=== PATIENT | female | born 2000 | race Hispanic/Latino ===

== ENCOUNTER 2023-08-28 17:45 | Emergency (ER) | payer SELFPAY ==
[2023-08-28 17:52] VITALS: BP 125/86; PULSE 110; RESP 18; TEMP 36.8; O2SAT 98
[2023-08-28 19:28] VITALS: BP 136/89; PULSE 94; RESP 14; O2SAT 100
--- NOTE | 2023-08-28 19:40 | ED.FEMALEGU ---
HPI - Female Genitourinary General Chief complaint: [employer] Stated complaint: vaginal pain Time Seen by Provider: 08/28/23 19:18 History of Present Illness HPI Narrative: 22-year-old [place]-speaking female presents to the emergency department with concerns for a abscess to her labia for a few days. Patient states the area has been draining some fluid. She also reports a thickened white discharge. She has had 1 sexual partner in the past 6 months and is requesting to be tested for STDs with empiric treatment. She denies fever, abdominal pain, nausea or vomiting, vaginal bleeding. LMP 08/10/2023. History taking and exam performed with titrator. Related Data Allergies Allergy/AdvReac Type Severity Reaction Status Date / Time No Known Allergies Allergy Verified 08/28/23 19:32 Review of Systems Review of Systems: CONSTITUTIONAL: Denies fever, chills, or sweats. EYES: Denies visual changes, redness, or discharge. ENT: Denies rhinorrhea, congestion, sore throat, or otalgia. CARDIOVASCULAR: Denies chest pain, palpitations, or edema. RESPIRATORY: Denies cough or dyspnea. GASTROINTESTINAL: Denies abdominal pain, nausea, vomiting, or diarrhea. GENITOURINARY: See HPI SKIN: Denies rash or itching. MUSCULOSKELETAL: Denies back pain, joint pain, or myalgia. NEUROLOGIC: Denies headache, numbness, or weakness. PSYCHIATRIC: Denies anxiety or depression. Exam Narrative: GENERAL: Well-appearing, well-nourished, and in no acute distress. HEAD: Normocephalic, atraumatic. NECK: Supple. CHEST: Clear to auscultation. No respiratory distress. HEART: Regular rate and rhythm. No murmur heard. Normal peripheral pulses. ABDOMEN: Soft, nontender, nondistended, normal active bowel sounds. : 1 mm papule to the external left labia majora without central punctum, fluctuance, induration, active drainage. Remainder of external genitalia unremarkable. Vaginal vault normal with moderate physiological discharge. Cervical os put closed. No bleeding or cervical motion tenderness. No Adnexal masses or tenderness on bimanual exam. EXTREMITIES: Normal range of motion. No edema. SKIN: Warm, dry, no rash. NEURO: No focal deficits. Alert and oriented x3 Course Vital Signs Vital signs: Vital Signs Temperature 98.2 F 08/28/23 17:52 Pulse Rate 110 H 08/28/23 17:52 Respiratory Rate 18 08/28/23 17:52 Blood Pressure 125/86 08/28/23 17:52 Pulse Oximetry 98 08/28/23 17:52 Oxygen Delivery Room Air 08/28/23 17:52 Temperature 98.2 F 08/28/23 17:52 Pulse Rate 94 08/28/23 19:28 Respiratory Rate 14 08/28/23 19:28 Blood Pressure 136/89 08/28/23 19:28 Pulse Oximetry 100 08/28/23 19:28 Oxygen Delivery Room Air 08/28/23 17:52 MDM - Female Genitourinary MDM Narrative Medical decision making narrative: 22-year-old female presents to the emergency department for a lump to her labia majora for few days and STD testing. Triage vital significant for tachycardia which has since resolved. Vitals otherwise unremarkable. She is nontoxic appearing. Exam is significant for a small papule to the labia majora consistent with folliculitis. There is no evidence of abscess. Remainder pelvic exam is unremarkable. There is no CMT. Chlamydia, gonorrhea Trichomonas test pending. Patient requesting empiric treatment and was given 1st dose of doxycycline, Flagyl and IM Rocephin. advised her to follow up with Gynecology for further STD testing including HIV, syphilis and hepatitis given we do not test for these in the ED. referral provided. Will also prescribed topical mupirocin for folliculitis. ED return precautions provided. She is agreeable to plan verbalized understanding. Discharged in stable condition. Discharge Plan Discharge Clinical Impression: Screen for STD (sexually transmitted disease), Folliculitis Patient Disposition: Home, Self-Care Condition: Stable Instructions: Antibiotic Form, Sexually Tra
[2023-08-28] MEDS: LIDOCAINE HCL 1% LOCAL INJ 10 ML VIAL 2.1 ML XX (19:59)
[2023-08-28] MEDS: metroNIDAZOLE 500 MG TABLET PO (20:00)
[2023-08-28] MEDS: DOXYCYCLINE HYCLATE 100 MG TABLET PO (20:00)
[2023-08-28] MEDS: cefTRIAXone 1 GM VIAL 0.5 GM IM (20:00)
[2023-08-28 20:25] LABS: Appearance Urine Clear (Clear); Bilirubin Urine Negative (Negative); Blood Urine Negative (Negative); Color Urine Yellow (Yellow); Glucose Urine UA Negative (Negative); Ketones Urine Negative (Negative); Leukocyte Esterase Ur Negative LEU/UL (Negative); Nitrate Urine Negative (Negative); Protein Urine Negative (Negative); Specific Grav Ur 1.017 (1.001-1.035); Urobilinogen Urine 0.2 mg/dL (<2.0)
[2023-08-28 20:32] LABS: Add Urine Microscopic? NO
[2023-08-28 21:17] LABS: Trichomonas Vag PCR NOT DETECTED (NOT DETECTE)
[2023-08-28 21:40] LABS: Chlamydia trachomatis NOT DETECTED (NOT DETECTE); Neisseria gonorrhoeae PCR NOT DETECTED (NOT DETECTE)
== END 2023-08-28 20:18 | disposition home or self-care (01) ==
PROVIDERS: Emergency Provider Physician Assistant
DX: L73.9 Follicular disorder, unspecified (principal); Z11.3 Encounter for screening for infections with a predominantly sexual mode of transmission
CPT/HCPCS: 81003; 81025; 87070; 87491; 87591; 87661; 96372; 99284; A9270; J0696